=== PATIENT | male | born 1975 | race Two or more races ===

== ENCOUNTER 2017-04-23 16:31 | Inpatient (IN) | payer MEDICAID ==
[~2017-04-23] VITALS: Ht 175.3 cm; Wt 172.0 kg
[~2017-04-23 16:31] MED LIST: FERRCAP PO; HYDR-4663 PO; IBUP800T24 PO; TRAM-297 PO
[2017-04-23 17:25] LABS: DEFINITIVE VIEW TRANSMISSION; Eosinophils # (auto) 0 uL; Mean Corpuscular Hemoglobin 16.9 pg (28.0-32.0)
[2017-04-23 17:33] LABS: Basophils # (auto) 0.1 uL; Basophils % (auto) 1.2 % (0.0-2.0); Eosinophils % (auto) 0.5 % (0.0-7.0); Hematocrit 18.9 % (41.0-53.0); Lymphocytes # (auto) 0.9 uL; Lymphocytes % (auto) 15.8 % (10.0-50.0); Mean Corpuscular Hgb Conc. 29.9 g/dL (32.0-36.0); Mean Corpuscular Volume 56.5 fL (80.0-100.0); Mean Platelet Volume 7.6 fL (7.4-10.4); Monocytes # (auto) 0.4 uL; Neutrophils # (auto) 4.4 uL; Neutrophils % (auto) 75.5 % (37.0-80.0); Platelet Count (auto) 437 10^3/uL (140-450); White Blood Cell 5.9 10^3/uL (4.4-10.8)
[2017-04-23] MEDS ORDERED: SODIUM CHLORIDE 0.9% 1,000 ML IVB ONE (17:40)
[2017-04-23 17:42] LABS: BUN/Creatinine Ratio 11.9; Potassium 3.6 mmol/L (3.5-5.1)
[2017-04-23 17:43] LABS: Albumin 3.6 g/dL (3.4-5.0); Bilirubin, Total 0.9 mg/dL (0.2-1.0); Calcium 8.7 mg/dL (8.5-10.1); Magnesium 2.7 mg/dL (1.6-2.6); Total Protein 7.7 g/dL (6.4-8.2)
[2017-04-23 18:01] LABS: Red Cell Distribution Width 20.2 % (11.6-16.0)
[2017-04-23 18:02] LABS: Hemoglobin 5.7 g/dL (13.5-17.5)
[2017-04-23 18:56] LABS: Hypochromia Marked; Microcytosis Marked; Ovalocytes MODERATE; Platelet Estimate Adequate
[2017-04-23 18:57] LABS: Poikilocytosis Moderate
[2017-04-23] MEDS ORDERED: ONDANSETRON HCL 4 MG/2 ML VIAL IV ONE ×2 (19:00→22:15)
[2017-04-23] MEDS ORDERED: HYDROmorphone HCL 2 MG/ML VL IV ONE ×2 (19:00→22:15)
[2017-04-23 20:36] VITALS: BP 107/79
[2017-04-23] MEDS ORDERED: PANTOPRAZOLE SODIUM 40 MG/10 ML VIAL IV ONE (20:45)
[2017-04-23 20:51] VITALS: BP 114/57
[2017-04-23 21:51] VITALS: BP 113/54
[2017-04-23 22:40] VITALS: BP 115/62
[2017-04-23 23:08] VITALS: BP 121/51
[2017-04-23 23:23] VITALS: BP 126/79
[2017-04-23] MEDS ORDERED: ONDANSETRON HCL 4 MG/2 ML VIAL IV PRN (23:30)
[2017-04-23] MEDS ORDERED: MORPHINE SULF INJ 2 MG/ML SYRINGE 1ML IV PRN (23:30)
[2017-04-23] MEDS ORDERED: NALBUPHINE HCL 10 MG/1ml INJECTION IV PRN (23:30)
[2017-04-23] MEDS ORDERED: HYDROcodone-ACET 5/325MG TAB PO PRN (23:30)
[2017-04-23] MEDS ORDERED: ACETAMINOPHEN 325 MG TAB PO PRN (23:30)
[2017-04-23] MEDS ORDERED: NITROGLYCERIN 0.4 MG SL TAB SL PRN (23:30)
[2017-04-23] MEDS: SODIUM CHLORIDE 0.9% 1,000 ML IV SCH (23:53)
[2017-04-24] VITALS (15 sets, daily range): BP systolic 101–143; BP diastolic 50–84
[2017-04-24] MEDS ORDERED: KETOROLAC TROMETH 30 MG/ML 1ML VIAL IV PRN (02:45)
[2017-04-24] MEDS ORDERED: HYDROmorphone HCL 2 MG/ML VL IV ONE (04:45)
[2017-04-24] MEDS ORDERED: TEMA30CA PO (05:42)
[2017-04-24] MEDS ORDERED: FLUO10TA18 PO (05:42)
[2017-04-24] MEDS ORDERED: GABA-497 PO (05:42)
[2017-04-24] MEDS ORDERED: FLUO20CA90 PO (05:42)
[2017-04-24] MEDS ORDERED: HYDR-4069 PO (05:42)
[2017-04-24] MEDS ORDERED: LORA-154 PO (05:42)
[2017-04-24 05:44] LABS: Basophils # (auto) 0.1 uL; DEFINITIVE VIEW TRANSMISSION; Eosinophils # (auto) 0.1 uL; Eosinophils % (auto) 2.1 % (0.0-7.0); Hemoglobin 7.5 g/dL (13.5-17.5); Lymphocytes # (auto) 1.1 uL; Lymphocytes % (auto) 21.6 % (10.0-50.0); Mean Corpuscular Hemoglobin 19.9 pg (28.0-32.0); Mean Corpuscular Hgb Conc. 31.4 g/dL (32.0-36.0); Mean Corpuscular Volume 63.5 fL (80.0-100.0); Mean Platelet Volume 7.6 fL (7.4-10.4); Monocytes # (auto) 0.5 uL; Monocytes % (auto) 10.4 % (0.0-12.0); Neutrophils # (auto) 3.4 uL; Neutrophils % (auto) 64.9 % (37.0-80.0); Platelet Count (auto) 380 10^3/uL (140-450); SUSPECT VIEW TRANSMISSION; White Blood Cell 5.3 10^3/uL (4.4-10.8)
[2017-04-24 05:59] LABS: INR 1.04 (0.9-1.15); Partial Thromboplastin Time 26.7 sec (22.64-33.71); Prothrombin Time 11.3 sec (9.37-12.3)
[2017-04-24 06:20] LABS: Albumin 3.2 g/dL (3.4-5.0); BUN/Creatinine Ratio 12.9; Potassium 3.7 mmol/L (3.5-5.1); Total Protein 6.8 g/dL (6.4-8.2)
[2017-04-24 06:23] LABS: Red Cell Distribution Width 29.2 % (11.6-16.0)
[2017-04-24 08:26] LABS: Anisocytosis Marked; Hypochromia Marked; Microcytosis Marked; Platelet Estimate Adequate
[2017-04-24 08:27] LABS: Ovalocytes MODERATE
[2017-04-24 08:28] LABS: Tear Drop Cells FEW
[2017-04-24 08:29] LABS: Stomatocytes Few
[2017-04-24] MEDS ORDERED: GASTROGRAFIN 120 ML SOL ONE (08:38)
[2017-04-24] MEDS: PANTOPRAZOLE SODIUM 40 MG/10 ML VIAL IV SCH ×2 (10:00→23:13)
[2017-04-24] MEDS: SODIUM CHLORIDE 0.9% 1,000 ML IV SCH (10:27)
[2017-04-24 12:04] LABS: Urine RBC None Seen /hpf (0 - 3)
[2017-04-24 12:16] LABS: Hemoglobin 9.3 g/dL (13.5-17.5)
[2017-04-24] MEDS: HYDROmorphone HCL 2 MG/ML VL IV PRN ×3 (12:32→23:18)
[2017-04-24 13:04] LABS: Urine Bilirubin Negative (Negative); Urine Blood Negative /uL (Negative); Urine Color Yellow (Yellow); Urine Glucose Normal (Normal); Urine Ketone Negative (Negative); Urine Mucus FEW (None Seen); Urine Nitrite Negative (Negative); Urine Squamous Epithelial Cell FEW /hpf (<5); Urine Urobilinogen Normal (Negative); Urine pH 5.5 (5.0-8.0)
[2017-04-24 19:51] LABS: Hematocrit 25.2 % (41.0-53.0); Hemoglobin 7.7 g/dL (13.5-17.5)
[2017-04-24] MEDS ORDERED: SODIUM CHLORIDE 0.9% 1,000 ML IV SCH (23:20)
[2017-04-25 05:00] VITALS: BP 135/48
[2017-04-25] MEDS: HYDROmorphone HCL 2 MG/ML VL IV PRN ×4 (06:49→20:44)
[2017-04-25 07:07] LABS: Hematocrit 25.1 % (41.0-53.0); Hemoglobin 7.7 g/dL (13.5-17.5)
[2017-04-25] MEDS ORDERED: SODIUM CHLORIDE LOCK 10 ML ONE (08:39)
[2017-04-25] MEDS ORDERED: diphenhdrAMINE HCL 50 MG/1 ML VL ONE (08:39)
[2017-04-25] MEDS ORDERED: LIDOCAINE VISCOUS 2% 15ML UD ONE (08:39)
[2017-04-25 09:00] VITALS: BP 134/70
[2017-04-25] MEDS: fentaNYL CITRATE 100 MCG/2 ML VL ONE ×2 (10:15→10:18)
[2017-04-25] MEDS: MIDAZOLAM HCL 5 MG/ML-1ML VIAL ONE ×2 (10:15→10:18)
[2017-04-25] MEDS: PANTOPRAZOLE SODIUM 40 MG/10 ML VIAL IV SCH ×2 (12:23→22:09)
[2017-04-25 13:00] VITALS: BP 150/87
[2017-04-25 17:08] VITALS: BP 126/66
[2017-04-25 22:00] VITALS: BP 137/75
[2017-04-26] MEDS: HYDROmorphone HCL 2 MG/ML VL IV PRN ×2 (02:00→08:56)
[2017-04-26 05:43] VITALS: BP 103/55
[2017-04-26 05:52] LABS: Hemoglobin 7.9 g/dL (13.5-17.5)
[2017-04-26] MEDS: PANTOPRAZOLE SODIUM 40 MG/10 ML VIAL IV SCH (08:56)
[2017-04-26 10:15] VITALS: BP 121/70
== END 2017-04-26 12:30 | disposition home or self-care (01) | DRG 254 ==
LOC: ER 16:31 → EDBD 16:31 → TELE 16:32 → TELE-EAST 16:32
PROVIDERS: ADMIT Internal Medicine; ATTEND Internal Medicine
PROC: 30233N1 Transfusion of Nonautologous Red Blood Cells into Peripheral Vein, Percutaneous Approach (ICD-10-PCS; 2017-04-23)
PROC: 0DJ08ZZ Inspection of Upper Intestinal Tract, Via Natural or Artificial Opening Endoscopic (ICD-10-PCS; principal; 2017-04-25 10:12)
DX: K90.9 Intestinal malabsorption, unspecified (principal); E66.01 Morbid (severe) obesity due to excess calories; I10 Essential (primary) hypertension; N20.0 Calculus of kidney; D64.9 Anemia, unspecified; K46.9 Unspecified abdominal hernia without obstruction or gangrene; K43.9 Ventral hernia without obstruction or gangrene; Z98.84 Bariatric surgery status; F41.8 Other specified anxiety disorders; F17.210 Nicotine dependence, cigarettes, uncomplicated; Z83.3 Family history of diabetes mellitus; F32.9 Major depressive disorder, single episode, unspecified; F41.9 Anxiety disorder, unspecified; Z88.5 Allergy status to narcotic agent; Z71.89 Other specified counseling; Z82.3 Family history of stroke
CPT/HCPCS: 36415; 36430; 43235; 71010; 74177; 74250; 80053; 81001; 83605; 83690; 83735; 85014; 85018; 85025; 85610; 85730; 86850; 86900; 86901; 86920; 87040; 87081; 93005; 96361; 96374; 96375; 96376; 99291; C9113; J1885; J2250; J2405

== ENCOUNTER 2017-05-28 13:50 | Emergency (ER) | payer MEDICAID ==
[~2017-05-28] VITALS: Ht 175.3 cm; Wt 169.2 kg
[~2017-05-28 13:50] MED LIST changes: -FERRCAP PO; +FLUO10TA18 PO; +FLUO20CA90 PO; +GABA-497 PO; +HYDR-4069 PO; -HYDR-4663 PO; -IBUP800T24 PO; +LORA-154 PO; +TEMA30CA PO; -TRAM-297 PO
[2017-05-28 15:43] LABS: Basophils # (auto) 0 uL; Basophils % (auto) 0.6 % (0.0-2.0); CONDITION Y; DEFINITIVE SEE PRINTOUT; Eosinophils # (auto) 0.2 uL; Eosinophils % (auto) 2.4 % (0.0-7.0); Hematocrit 31.5 % (41.0-53.0); Hemoglobin 9.8 g/dL (13.5-17.5); Lymphocytes # (auto) 1.3 uL; Lymphocytes % (auto) 16.3 % (10.0-50.0); Mean Corpuscular Hemoglobin 19.9 pg (28.0-32.0); Mean Corpuscular Hgb Conc. 30.9 g/dL (32.0-36.0); Mean Corpuscular Volume 64.3 fL (80.0-100.0); Mean Platelet Volume 7.5 fL (7.4-10.4); Monocytes # (auto) 0.6 uL; Monocytes % (auto) 7.3 % (0.0-12.0); Neutrophils # (auto) 5.9 uL; Neutrophils % (auto) 73.4 % (37.0-80.0); Platelet Count (auto) 512 10^3/uL (140-450); SUSPECT SEE PRINTOUT
[2017-05-28 15:49] LABS: Calcium 8.7 mg/dL (8.5-10.1); Potassium 4.1 mmol/L (3.5-5.1)
[2017-05-28 15:55] LABS: BUN/Creatinine Ratio 21.2; Bilirubin, Total 0.7 mg/dL (0.2-1.0); Total Protein 7.9 g/dL (6.4-8.2)
[2017-05-28 16:22] LABS: Platelet Estimate Increased
[2017-05-28 16:23] LABS: Anisocytosis Marked; Hypochromia Marked
[2017-05-28 16:24] LABS: Microcytosis Marked; Ovalocytes MODERATE
[2017-05-28 16:53] VITALS: BP 140/99
[2017-05-28] MEDS ORDERED: HYDROmorphone HCL 2 MG/ML VL IM ONE (17:15)
[2017-05-28] MEDS ORDERED: ONDANSETRON HCL 4 MG/2 ML VIAL IM ONE (17:15)
[2017-05-28 17:50] LABS: Urine Bilirubin Negative (Negative); Urine Blood Negative /uL (Negative); Urine Color Yellow (Yellow); Urine Glucose Normal (Normal); Urine Mucus FEW (None Seen); Urine Nitrite Negative (Negative); Urine RBC <1 /hpf (0 - 3); Urine Squamous Epithelial Cell FEW /hpf (<5); Urine Urobilinogen Normal (Negative); Urine pH 5.5 (5.0-8.0)
[2017-05-28 17:51] LABS: Urine Ketone 1+ (Negative)
== END 2017-05-28 20:30 | disposition home or self-care (01) ==
LOC: ER 13:53
DX: R10.84 Generalized abdominal pain (principal); D64.9 Anemia, unspecified; F17.210 Nicotine dependence, cigarettes, uncomplicated; Z98.84 Bariatric surgery status; Z98.890 Other specified postprocedural states; Z88.5 Allergy status to narcotic agent
CPT/HCPCS: 36415; 74176; 80053; 81001; 82150; 83690; 85025; 96372; 99285; J1170; J2405

== ENCOUNTER 2017-06-23 07:38 | Emergency (ER) | payer MEDICAID ==
[~2017-06-23] VITALS: Ht 175.3 cm; Wt 170.1 kg
[2017-06-23 08:09] LABS: Urine Bilirubin Negative (Negative); Urine Blood Negative /uL (Negative); Urine Color Yellow (Yellow); Urine Glucose Normal (Normal); Urine Ketone Negative (Negative); Urine Mucus FEW (None Seen); Urine Nitrite Negative (Negative); Urine RBC 1 /hpf (0 - 3); Urine Squamous Epithelial Cell FEW /hpf (<5); Urine pH 7.5 (5.0-8.0)
[2017-06-23 08:09] LABS: Basophils # (auto) 0 uL; Basophils % (auto) 0.6 % (0.0-2.0); CONDITION Y; DEFINITIVE SEE PRINTOUT; Eosinophils # (auto) 0.2 uL; Eosinophils % (auto) 3.7 % (0.0-7.0); Hematocrit 31.8 % (41.0-53.0); Hemoglobin 9.8 g/dL (13.5-17.5); Lymphocytes % (auto) 19.7 % (10.0-50.0); Mean Corpuscular Hgb Conc. 30.9 g/dL (32.0-36.0); Mean Corpuscular Volume 67.9 fL (80.0-100.0); Mean Platelet Volume 6.9 fL (7.4-10.4); Monocytes # (auto) 0.7 uL; Monocytes % (auto) 13.4 % (0.0-12.0); Neutrophils # (auto) 3.1 uL; Neutrophils % (auto) 62.6 % (37.0-80.0); Platelet Count (auto) 485 10^3/uL (140-450); SUSPECT SEE PRINTOUT; White Blood Cell 4.9 10^3/uL (4.4-10.8)
[2017-06-23 08:10] LABS: Red Cell Distribution Width 26.2 % (11.6-16.0)
[2017-06-23] MEDS ORDERED: SODIUM CHLORIDE 0.9% 1,000 ML IVB ONE (08:12)
[2017-06-23] MEDS ORDERED: KETOROLAC TROMETH 30 MG/ML 1ML VIAL IV ONE (08:15)
[2017-06-23] MEDS ORDERED: PROMETHAZINE HCL 25 MG/ML 1ML IV PRN (08:15)
[2017-06-23 08:47] LABS: Albumin 3.5 g/dL (3.4-5.0); Calcium 8.1 mg/dL (8.5-10.1); Magnesium 2.4 mg/dL (1.6-2.6); Potassium 4.1 mmol/L (3.5-5.1)
[2017-06-23 08:49] LABS: BUN/Creatinine Ratio 16.7
[2017-06-23 09:03] LABS: Bilirubin, Total 0.4 mg/dL (0.2-1.0); Total Protein 7.4 g/dL (6.4-8.2)
[2017-06-23 10:12] LABS: Anisocytosis Slight; Hypochromia Slight; Microcytosis Slight; Ovalocytes FEW; Platelet Estimate Increased
[2017-06-23] MEDS ORDERED: NALBUPHINE HCL 10 MG/1ml INJECTION IV ONE (10:15)
[2017-06-23 12:25] VITALS: BP 120/67
== END 2017-06-23 12:34 | disposition home or self-care (01) ==
LOC: ER 07:38
DX: R10.11 Right upper quadrant pain (principal); E66.01 Morbid (severe) obesity due to excess calories; F17.210 Nicotine dependence, cigarettes, uncomplicated; Z68.43 Body mass index [BMI] 50.0-59.9, adult; Z88.6 Allergy status to analgesic agent; Z79.899 Other long term (current) drug therapy
CPT/HCPCS: 36415; 71020; 76705; 80053; 81001; 82150; 83690; 83735; 84443; 85025; 96361; 96374; 96375; 99285; J1885; J2300; J2550; J7030

== ENCOUNTER 2017-09-12 17:20 | Inpatient (IN) | payer MEDICAID ==
[~2017-09-12] VITALS: Ht 177.8 cm; Wt 167.5 kg
[2017-09-12] MEDS ORDERED: SODIUM CHLORIDE 0.9% 1,000 ML IV ONE ×2 (18:14→19:00)
[2017-09-12] MEDS ORDERED: SODIUM CHLORIDE 0.9% 1,000 ML IVB ONE (18:14)
[2017-09-12 18:32] LABS: Basophils # (auto) 0 uL; Eosinophils # (auto) 0 uL; Lymphocytes # (auto) 1.5 uL; Mean Corpuscular Hemoglobin 22.9 pg (28.0-32.0); Mean Corpuscular Hgb Conc. 31.3 g/dL (32.0-36.0); Monocytes # (auto) 0.1 uL; Monocytes % (auto) 2.7 % (0.0-12.0); Neutrophils # (auto) 1.7 uL; Nucleated Red Blood Cells % 0.1 %; White Blood Cell 3.4 10^3/uL (4.4-10.8)
[2017-09-12 18:34] LABS: Basophils % (auto) 1.1 % (0.0-2.0); Eosinophils % (auto) 0.6 % (0.0-7.0); Hematocrit 27.2 % (41.0-53.0); Hemoglobin 8.5 g/dL (13.5-17.5); Lymphocytes % (auto) 44.9 % (10.0-50.0); Mean Corpuscular Volume 73.1 fL (80.0-100.0); Neutrophils % (auto) 50.7 % (37.0-80.0); Platelet Count (auto) 23 10^3/uL (140-450)
[2017-09-12 18:40] LABS: Albumin 3.2 g/dL (3.4-5.0); Alkaline Phosphatase 67 U/L (45-117); Anion Gap 8 (5-15); Aspartate Aminotransferase 20 U/L (15-37); BUN/Creatinine Ratio 46.1; Bilirubin, Total 0.4 mg/dL (0.2-1.0); Blood Urea Nitrogen 35 mg/dL (7-18); Calcium 7.9 mg/dL (8.5-10.1); Carbon Dioxide 23 mmol/L (21-32); Chloride 104 mmol/L (98-107); GFR African American 147 mL/min; GFR Non-African American 121 mL/min; Glucose 102 mg/dL (74-106); Magnesium 2.5 mg/dL (1.6-2.6); Potassium 5.1 mmol/L (3.5-5.1); Sodium 135 mmol/L (136-145); Total Protein 6.8 g/dL (6.4-8.2)
[2017-09-12] MEDS ORDERED: NOREPINEPHRINE 8 MG/250ML KIT 250 ML IV SCH (18:49)
[2017-09-12 18:52] LABS: Red Cell Distribution Width 26.5 % (11.8-14.3)
[2017-09-12 19:11] LABS: INR 1.05 (0.9-1.15); Partial Thromboplastin Time 21.3 sec (22.64-33.71); Prothrombin Time 11.4 sec (9.37-12.3)
[2017-09-12] MEDS ORDERED: ENOXAPARIN SOD 150 MG/1 ML SYRINGE SC ONE (19:30)
[2017-09-12 19:38] LABS: Urine RBC None Seen /hpf (0 - 3)
[2017-09-12 20:04] LABS: Anisocytosis Moderate; Hypochromia Moderate; Microcytosis Moderate; Platelet Estimate Markedly Decreased
[2017-09-12 20:05] LABS: Ovalocytes FEW
[2017-09-12 20:12] LABS: Urine Bilirubin Negative (Negative); Urine Blood Negative /uL (Negative); Urine Color Yellow (Yellow); Urine Glucose Normal (Normal); Urine Ketone 1+ (Negative); Urine Nitrite Negative (Negative); Urine Squamous Epithelial Cell FEW /hpf (<5); Urine Urobilinogen Normal (Negative)
[2017-09-12] MEDS ORDERED: KETOROLAC TROMETH 30 MG/ML 1ML VIAL IV ONE (20:30)
[2017-09-12] MEDS ORDERED: IOHEXOL 350 MG/ML 100ML IJ ONE (22:58)
[2017-09-13] VITALS (12 sets, daily range): BP systolic 102–133; BP diastolic 45–71
[2017-09-13] MEDS: SODIUM CHLORIDE 0.9% 1,000 ML IV SCH ×2 (00:42→13:28)
[2017-09-13] MEDS ORDERED: TEMAZEPAM 15 MG CAP PO PRN (00:45)
[2017-09-13] MEDS ORDERED: ACETAMINOPHEN 325 MG TAB PO PRN (00:45)
[2017-09-13] MEDS: HYDROcodone-ACET 5/325MG TAB PO PRN ×4 (03:11→13:28)
[2017-09-13] MEDS: TEMAZEPAM 15 MG CAP PO PRN (03:17)
[2017-09-13 06:37] LABS: Amylase 21 U/L (25-115)
[2017-09-13] MEDS ORDERED: GABA-497 PO (06:54)
[2017-09-13] MEDS ORDERED: TEMA30CA PO (06:54)
[2017-09-13] MEDS ORDERED: FLUO20CA19 PO (06:54)
[2017-09-13] MEDS ORDERED: HYDR-4683 PO (06:54)
[2017-09-13] MEDS ORDERED: FER325T PO (06:54)
[2017-09-13] MEDS: FLUoxetine HCL 20 MG CAP PO SCH (09:18)
[2017-09-13] MEDS ORDERED: PANTOPRAZOLE 40 MG/10 ML VIAL IV SCH (10:00)
[2017-09-13] MEDS: SUCRALFATE 1 GM/10 ML ORAL SUSP PO SCH ×2 (17:00→23:13)
[2017-09-13 17:27] LABS: Basophils # (auto) 0 uL; Eosinophils # (auto) 0.1 uL; Eosinophils % (auto) 0.8 % (0.0-7.0); Hematocrit 21.6 % (41.0-53.0); Mean Corpuscular Hgb Conc. 30.3 g/dL (32.0-36.0); Monocytes # (auto) 0.4 uL
[2017-09-13 17:28] LABS: Basophils % (auto) 0.5 % (0.0-2.0); Lymphocytes # (auto) 0.8 uL; Mean Corpuscular Hemoglobin 22.3 pg (28.0-32.0); Mean Corpuscular Volume 73.7 fL (80.0-100.0); Mean Platelet Volume 7.4 fL (6.9-10.8); Neutrophils # (auto) 5.7 uL; Neutrophils % (auto) 80.7 % (37.0-80.0); Platelet Count (auto) 267 10^3/uL (140-450); White Blood Cell 7.1 10^3/uL (4.4-10.8)
[2017-09-13 17:42] LABS: BUN/Creatinine Ratio 31.5; Calcium 7.9 mg/dL (8.5-10.1); Potassium 3.6 mmol/L (3.5-5.1)
[2017-09-13 17:44] LABS: Red Cell Distribution Width 25.8 % (11.8-14.3)
[2017-09-13 17:47] LABS: Hemoglobin 6.5 g/dL (13.5-17.5)
[2017-09-13] MEDS: HYDROmorphone HCL 2 MG/ML VL IV PRN (18:09)
[2017-09-13 18:53] LABS: Platelet Estimate Adequate
[2017-09-13 18:54] LABS: Ovalocytes FEW; Tear Drop Cells FEW
[2017-09-13 18:56] LABS: Polychromasia Slight
[2017-09-13 18:57] LABS: Anisocytosis Moderate; Hypochromia Moderate; Microcytosis Moderate
[2017-09-13] MEDS: PANTOPRAZOLE 40 MG/10 ML VIAL IV SCH (22:00)
[2017-09-14] VITALS (16 sets, daily range): BP systolic 98–148; BP diastolic 36–80
[2017-09-14] MEDS: TEMAZEPAM 15 MG CAP PO PRN ×2 (02:34→23:57)
[2017-09-14] MEDS: SODIUM CHLORIDE 0.9% 1,000 ML IV SCH ×2 (02:36→14:26)
[2017-09-14] MEDS: HYDROmorphone HCL 2 MG/ML VL IV PRN ×5 (05:51→23:58)
[2017-09-14] MEDS: ONDANSETRON HCL 4 MG/2 ML VIAL IV PRN ×4 (05:52→18:17)
[2017-09-14] MEDS: SUCRALFATE 1 GM/10 ML ORAL SUSP PO SCH ×4 (07:05→23:11)
[2017-09-14 07:12] LABS: Eosinophils # (auto) 0.1 uL; Monocytes # (auto) 0.5 uL; Nucleated Red Blood Cells % 0.1 %; Platelet Count (auto) 248 10^3/uL (140-450)
[2017-09-14 07:14] LABS: Basophils # (auto) 0 uL; Basophils % (auto) 0.9 % (0.0-2.0); Eosinophils % (auto) 2.1 % (0.0-7.0); Hematocrit 22.1 % (41.0-53.0); Lymphocytes # (auto) 1.1 uL; Lymphocytes % (auto) 21.4 % (10.0-50.0); Mean Corpuscular Hemoglobin 23.5 pg (28.0-32.0); Mean Corpuscular Hgb Conc. 31.1 g/dL (32.0-36.0); Mean Corpuscular Volume 75.7 fL (80.0-100.0); Monocytes % (auto) 8.8 % (0.0-12.0); Neutrophils # (auto) 3.5 uL; Neutrophils % (auto) 66.8 % (37.0-80.0); White Blood Cell 5.3 10^3/uL (4.4-10.8)
[2017-09-14 07:17] LABS: Red Cell Distribution Width 25.6 % (11.8-14.3)
[2017-09-14 07:19] LABS: Hemoglobin 6.9 g/dL (13.5-17.5)
[2017-09-14 07:30] LABS: Albumin 2.8 g/dL (3.4-5.0); Bilirubin, Total 0.5 mg/dL (0.2-1.0); Calcium 7.8 mg/dL (8.5-10.1); Magnesium 2.2 mg/dL (1.6-2.6); Potassium 3.6 mmol/L (3.5-5.1); Total Protein 5.9 g/dL (6.4-8.2)
[2017-09-14 10:10] LABS: Anisocytosis Slight; Hypochromia Slight; Microcytosis Slight; Platelet Estimate Adequate
[2017-09-14] MEDS: FERROUS SULFATE 325 MG TAB PO SCH ×2 (10:36→18:16)
[2017-09-14] MEDS: FLUoxetine HCL 20 MG CAP PO SCH (10:36)
[2017-09-14] MEDS: PANTOPRAZOLE 40 MG/10 ML VIAL IV SCH ×2 (10:36→23:11)
[2017-09-14 12:14] LABS: Hematocrit 25.1 % (41.0-53.0)
[2017-09-14] MEDS: HYDROcodone-ACET 10/325MG TAB PO PRN (23:12)
[2017-09-15] MEDS: SODIUM CHLORIDE 0.9% 1,000 ML IV SCH ×2 (02:33→12:23)
[2017-09-15 05:00] VITALS: BP 126/70
[2017-09-15] MEDS: SUCRALFATE 1 GM/10 ML ORAL SUSP PO SCH ×4 (07:00→21:24)
[2017-09-15] MEDS: HYDROmorphone HCL 2 MG/ML VL IV PRN ×3 (07:37→21:25)
[2017-09-15] MEDS: FERROUS SULFATE 325 MG TAB PO SCH ×3 (07:54→17:40)
[2017-09-15 09:00] VITALS: BP 143/73
[2017-09-15] MEDS: PANTOPRAZOLE 40 MG/10 ML VIAL IV SCH ×2 (09:59→21:24)
[2017-09-15] MEDS: ONDANSETRON HCL 4 MG/2 ML VIAL IV PRN (09:59)
[2017-09-15] MEDS: FLUoxetine HCL 20 MG CAP PO SCH (10:00)
[2017-09-15] MEDS: HYDROcodone-ACET 10/325MG TAB PO PRN ×2 (10:00→16:02)
[2017-09-15] MEDS: DOXYCYCLINE 100 MG TAB/CAP PO SCH (12:14)
[2017-09-15 13:00] VITALS: BP 133/49
[2017-09-15 13:25] LABS: Basophils # (auto) 0.1 uL; Basophils % (auto) 0.9 % (0.0-2.0); Eosinophils # (auto) 0.1 uL; Hematocrit 29.8 % (41.0-53.0); Hemoglobin 9.2 g/dL (13.5-17.5); Lymphocytes # (auto) 1.2 uL; Lymphocytes % (auto) 14.8 % (10.0-50.0); Mean Corpuscular Hemoglobin 23.5 pg (28.0-32.0); Mean Corpuscular Hgb Conc. 30.7 g/dL (32.0-36.0); Mean Corpuscular Volume 76.6 fL (80.0-100.0); Mean Platelet Volume 7.1 fL (6.9-10.8); Monocytes # (auto) 0.5 uL; Monocytes % (auto) 6.5 % (0.0-12.0); Neutrophils # (auto) 6.1 uL; Neutrophils % (auto) 76.8 % (37.0-80.0); Nucleated Red Blood Cells % 0.1 %; Platelet Count (auto) 361 10^3/uL (140-450); Red Cell Distribution Width 24.6 % (11.8-14.3); White Blood Cell 7.9 10^3/uL (4.4-10.8)
[2017-09-15 13:45] LABS: Albumin 3.5 g/dL (3.4-5.0); BUN/Creatinine Ratio 5.9; Bilirubin, Total 0.4 mg/dL (0.2-1.0); Calcium 8.4 mg/dL (8.5-10.1); Potassium 3.6 mmol/L (3.5-5.1); Total Protein 7.3 g/dL (6.4-8.2)
[2017-09-15 14:06] LABS: Anisocytosis Slight; Hypochromia Slight; Microcytosis Slight; Ovalocytes FEW; Platelet Estimate Adequate
[2017-09-15 16:38] VITALS: BP 140/56
[2017-09-15] MEDS: TEMAZEPAM 15 MG CAP PO PRN (21:25)
[2017-09-15 21:51] VITALS: BP 120/67
[2017-09-16] VITALS (7 sets, daily range): BP systolic 113–154; BP diastolic 62–87
[2017-09-16] MEDS: DOXYCYCLINE 100 MG TAB/CAP PO SCH ×2 (00:31→12:14)
[2017-09-16] MEDS: HYDROmorphone HCL 2 MG/ML VL IV PRN ×3 (03:49→18:38)
[2017-09-16] MEDS: SODIUM CHLORIDE 0.9% 1,000 ML IV SCH ×3 (03:58→21:11)
[2017-09-16 05:45] LABS: Basophils # (auto) 0 uL; Basophils % (auto) 1.1 % (0.0-2.0); Eosinophils # (auto) 0.1 uL; Eosinophils % (auto) 2.5 % (0.0-7.0); Hemoglobin 7.7 g/dL (13.5-17.5); Lymphocytes # (auto) 0.7 uL; Monocytes # (auto) 0.4 uL; Neutrophils # (auto) 2.3 uL
[2017-09-16 05:50] LABS: Hematocrit 24.1 % (41.0-53.0); Lymphocytes % (auto) 20.7 % (10.0-50.0); Mean Corpuscular Hemoglobin 24.4 pg (28.0-32.0); Mean Corpuscular Volume 76.5 fL (80.0-100.0); Mean Platelet Volume 7.2 fL (6.9-10.8); Monocytes % (auto) 11.8 % (0.0-12.0); Neutrophils % (auto) 63.9 % (37.0-80.0); Nucleated Red Blood Cells % 0.2 %; Platelet Count (auto) 276 10^3/uL (140-450); White Blood Cell 3.6 10^3/uL (4.4-10.8)
[2017-09-16 06:13] LABS: Albumin 2.8 g/dL (3.4-5.0); BUN/Creatinine Ratio 5.7; Bilirubin, Total 0.4 mg/dL (0.2-1.0); Potassium 3.1 mmol/L (3.5-5.1)
[2017-09-16] MEDS: SUCRALFATE 1 GM/10 ML ORAL SUSP PO SCH ×4 (06:13→21:10)
[2017-09-16] MEDS: FERROUS SULFATE 325 MG TAB PO SCH ×3 (08:00→18:37)
[2017-09-16] MEDS ORDERED: SODIUM CHLORIDE LOCK 10 ML ONE (08:12)
[2017-09-16] MEDS ORDERED: LIDOCAINE VISCOUS 2% 15ML UD ONE (08:12)
[2017-09-16] MEDS ORDERED: diphenhdrAMINE HCL 50 MG/1 ML VL ONE (08:12)
[2017-09-16 10:16] LABS: Platelet Estimate Adequate
[2017-09-16 10:19] LABS: Anisocytosis Moderate; Hypochromia Slight; Microcytosis Slight; Ovalocytes FEW; Schistocytes FEW; Stomatocytes Few; Tear Drop Cells FEW
[2017-09-16] MEDS: fentaNYL CITRATE 100 MCG/2 ML VL ONE ×3 (10:56→11:03)
[2017-09-16] MEDS: MIDAZOLAM HCL 5 MG/ML-1ML VIAL ONE ×3 (10:56→11:03)
[2017-09-16] MEDS ORDERED: GOLYTELY 4L KIT PO ONE (11:15)
[2017-09-16] MEDS: PANTOPRAZOLE 40 MG/10 ML VIAL IV SCH ×2 (12:13→21:10)
[2017-09-16] MEDS: FLUoxetine HCL 20 MG CAP PO SCH (12:14)
[2017-09-16] MEDS: ONDANSETRON HCL 4 MG/2 ML VIAL IV PRN ×2 (12:14→18:38)
[2017-09-16] MEDS ORDERED: POTASSIUM CHLORIDE 20 MEQ, LIDOCAINE 1% (LOCAL ANESTH.) 2 ML in SODIUM CHL 0.9% 100 ML IV ONE (12:45)
[2017-09-16] MEDS ORDERED: POTASSIUM CHL 20 Meq TABLET PO ONE (12:45)
[2017-09-16] MEDS: HYDROcodone-ACET 10/325MG TAB PO PRN ×2 (15:05→21:11)
[2017-09-17] MEDS: DOXYCYCLINE 100 MG TAB/CAP PO SCH ×2 (00:11→13:45)
[2017-09-17] MEDS: HYDROmorphone HCL 2 MG/ML VL IV PRN ×5 (00:12→22:07)
[2017-09-17 00:55] VITALS: BP 146/85
[2017-09-17 05:12] VITALS: BP 138/70
[2017-09-17] MEDS ORDERED: GOLYTELY 4L KIT PO ONE (06:00)
[2017-09-17 06:05] LABS: Eosinophils # (auto) 0.1 uL; Lymphocytes # (auto) 1.2 uL
[2017-09-17 06:12] LABS: Basophils # (auto) 0 uL; Basophils % (auto) 0.7 % (0.0-2.0); Eosinophils % (auto) 2.4 % (0.0-7.0); Hematocrit 30.5 % (41.0-53.0); Hemoglobin 9.6 g/dL (13.5-17.5); Lymphocytes % (auto) 19.7 % (10.0-50.0); Mean Corpuscular Hemoglobin 24.6 pg (28.0-32.0); Mean Corpuscular Hgb Conc. 31.3 g/dL (32.0-36.0); Mean Corpuscular Volume 78.4 fL (80.0-100.0); Mean Platelet Volume 7.4 fL (6.9-10.8); Monocytes # (auto) 0.7 uL; Monocytes % (auto) 11.1 % (0.0-12.0); Neutrophils # (auto) 3.9 uL; Neutrophils % (auto) 66.1 % (37.0-80.0); Nucleated Red Blood Cells % 0.1 %; Platelet Count (auto) 346 10^3/uL (140-450); White Blood Cell 5.9 10^3/uL (4.4-10.8)
[2017-09-17 06:19] LABS: Calcium 8.4 mg/dL (8.5-10.1); Magnesium 2.1 mg/dL (1.6-2.6); Potassium 3.4 mmol/L (3.5-5.1)
[2017-09-17 06:21] LABS: BUN/Creatinine Ratio 4.9
[2017-09-17 06:23] LABS: Red Cell Distribution Width 24.1 % (11.8-14.3)
[2017-09-17] MEDS: SUCRALFATE 1 GM/10 ML ORAL SUSP PO SCH ×4 (06:34→22:06)
[2017-09-17 06:47] LABS: Platelet Estimate Adequate
[2017-09-17 06:48] LABS: Anisocytosis Moderate; Hypochromia Slight; Microcytosis Slight
[2017-09-17 06:49] LABS: Ovalocytes MODERATE
[2017-09-17 08:23] VITALS: BP 119/64
[2017-09-17] MEDS ORDERED: NALOXONE HCL 0.4 MG/ML VIAL ONE (08:53)
[2017-09-17] MEDS ORDERED: FLUMAZENIL 0.1 MG/ML INJ 10ML MDV IV ONE (08:53)
[2017-09-17] MEDS ORDERED: diphenhdrAMINE HCL 50 MG/1 ML VL ONE (08:54)
[2017-09-17] MEDS ORDERED: SODIUM CHLORIDE LOCK 10 ML ONE (08:54)
[2017-09-17] MEDS: PANTOPRAZOLE 40 MG/10 ML VIAL IV SCH ×2 (08:57→22:06)
[2017-09-17] MEDS: fentaNYL CITRATE 100 MCG/2 ML VL ONE ×2 (11:57→12:00)
[2017-09-17] MEDS: MIDAZOLAM HCL 5 MG/ML-1ML VIAL ONE ×3 (11:57→12:03)
[2017-09-17] MEDS ORDERED: fentaNYL CITRATE 100 MCG/2 ML VL ONE (11:58)
[2017-09-17] MEDS ORDERED: MIDAZOLAM HCL 5 MG/ML-1ML VIAL ONE (11:58)
[2017-09-17] MEDS: FERROUS SULFATE 325 MG TAB PO SCH ×3 (12:00→18:52)
[2017-09-17] MEDS: FLUoxetine HCL 20 MG CAP PO SCH (13:45)
[2017-09-17] MEDS: HYDROcodone-ACET 10/325MG TAB PO PRN (14:18)
[2017-09-17] MEDS: SODIUM CHLORIDE 0.9% 1,000 ML IV SCH (17:03)
[2017-09-17 17:45] VITALS: BP 144/85
[2017-09-17 22:00] VITALS: BP 134/75
[2017-09-17] MEDS: ONDANSETRON HCL 4 MG/2 ML VIAL IV PRN (22:07)
[2017-09-18] MEDS: DOXYCYCLINE 100 MG TAB/CAP PO SCH ×3 (00:07→23:36)
[2017-09-18 05:00] VITALS: BP 129/59
[2017-09-18] MEDS: HYDROmorphone HCL 2 MG/ML VL IV PRN ×4 (05:06→21:51)
[2017-09-18] MEDS: ONDANSETRON HCL 4 MG/2 ML VIAL IV PRN ×3 (05:06→21:51)
[2017-09-18 06:09] LABS: Basophils # (auto) 0 uL; Eosinophils # (auto) 0.1 uL; Hematocrit 26.3 % (41.0-53.0); Lymphocytes # (auto) 0.9 uL; Mean Corpuscular Hemoglobin 24.7 pg (28.0-32.0); Monocytes # (auto) 0.6 uL; Neutrophils # (auto) 3.3 uL; Neutrophils % (auto) 67.7 % (37.0-80.0)
[2017-09-18 06:11] LABS: Basophils % (auto) 0.6 % (0.0-2.0); Eosinophils % (auto) 2.3 % (0.0-7.0); Hemoglobin 8.4 g/dL (13.5-17.5); Lymphocytes % (auto) 17.3 % (10.0-50.0); Mean Corpuscular Hgb Conc. 31.9 g/dL (32.0-36.0); Mean Corpuscular Volume 77.4 fL (80.0-100.0); Mean Platelet Volume 7.1 fL (6.9-10.8); Monocytes % (auto) 12.1 % (0.0-12.0); Nucleated Red Blood Cells % 0.2 %; Platelet Count (auto) 319 10^3/uL (140-450); White Blood Cell 4.9 10^3/uL (4.4-10.8)
[2017-09-18 06:20] LABS: Red Cell Distribution Width 24.6 % (11.8-14.3)
[2017-09-18 06:32] LABS: BUN/Creatinine Ratio 8.3; Calcium 8.2 mg/dL (8.5-10.1); Potassium 3.4 mmol/L (3.5-5.1)
[2017-09-18 06:46] LABS: Ovalocytes MODERATE; Platelet Estimate Adequate
[2017-09-18 06:47] LABS: Anisocytosis Moderate; Hypochromia Slight; Microcytosis Slight
[2017-09-18] MEDS: SUCRALFATE 1 GM/10 ML ORAL SUSP PO SCH ×4 (07:00→21:50)
[2017-09-18] MEDS: FERROUS SULFATE 325 MG TAB PO SCH ×3 (08:41→19:08)
[2017-09-18] MEDS: SODIUM CHLORIDE 0.9% 1,000 ML IV SCH ×2 (08:53→18:03)
[2017-09-18 08:58] VITALS: BP 120/79
[2017-09-18] MEDS: FLUoxetine HCL 20 MG CAP PO SCH (10:35)
[2017-09-18] MEDS: PANTOPRAZOLE 40 MG/10 ML VIAL IV SCH ×2 (10:36→21:50)
[2017-09-18] MEDS: HYDROcodone-ACET 10/325MG TAB PO PRN (11:36)
[2017-09-18 13:00] VITALS: BP 130/64
[2017-09-18 17:00] VITALS: BP 134/77
[2017-09-18 22:15] VITALS: BP 134/61
[2017-09-18] MEDS: TEMAZEPAM 15 MG CAP PO PRN ×2 (23:15)
[2017-09-19] VITALS (7 sets, daily range): BP systolic 120–144; BP diastolic 64–84
[2017-09-19] MEDS: HYDROmorphone HCL 2 MG/ML VL IV PRN ×4 (04:48→22:04)
[2017-09-19] MEDS: ONDANSETRON HCL 4 MG/2 ML VIAL IV PRN (04:48)
[2017-09-19] MEDS: SODIUM CHLORIDE 0.9% 1,000 ML IV SCH ×2 (06:00→19:03)
[2017-09-19] MEDS: SUCRALFATE 1 GM/10 ML ORAL SUSP PO SCH ×4 (06:26→22:04)
[2017-09-19 07:21] LABS: Basophils # (auto) 0 uL; Hematocrit 25.1 % (41.0-53.0); Lymphocytes # (auto) 0.9 uL; Mean Corpuscular Hgb Conc. 31.9 g/dL (32.0-36.0); Monocytes # (auto) 0.7 uL; Nucleated Red Blood Cells % 0.1 %
[2017-09-19 07:22] LABS: BUN/Creatinine Ratio 12.1; Magnesium 2.2 mg/dL (1.6-2.6); Phosphorus 4.8 mg/dL (2.5-4.90); Potassium 3.5 mmol/L (3.5-5.1)
[2017-09-19 07:23] LABS: Basophils % (auto) 0.6 % (0.0-2.0); Eosinophils # (auto) 0.1 uL; Lymphocytes % (auto) 19.4 % (10.0-50.0); Mean Corpuscular Volume 78.4 fL (80.0-100.0); Mean Platelet Volume 7.1 fL (6.9-10.8); Monocytes % (auto) 14.2 % (0.0-12.0); Neutrophils # (auto) 3.1 uL; Neutrophils % (auto) 62.8 % (37.0-80.0); Platelet Count (auto) 333 10^3/uL (140-450); White Blood Cell 4.9 10^3/uL (4.4-10.8)
[2017-09-19 07:58] LABS: Red Cell Distribution Width 24.4 % (11.8-14.3)
[2017-09-19] MEDS: FERROUS SULFATE 325 MG TAB PO SCH ×3 (08:46→16:51)
[2017-09-19] MEDS: FLUoxetine HCL 20 MG CAP PO SCH (08:46)
[2017-09-19] MEDS: PANTOPRAZOLE 40 MG/10 ML VIAL IV SCH ×2 (08:46→22:04)
[2017-09-19] MEDS: DOXYCYCLINE 100 MG TAB/CAP PO SCH (12:02)
[2017-09-19 14:02] LABS: Platelet Estimate Adequate
[2017-09-19 14:03] LABS: Anisocytosis Moderate; Hypochromia Slight; Microcytosis Slight
[2017-09-19 14:04] LABS: Ovalocytes FEW
[2017-09-19 14:06] LABS: Tear Drop Cells FEW
[2017-09-19] MEDS: TEMAZEPAM 15 MG CAP PO PRN (22:04)
[2017-09-20] MEDS: HYDROmorphone HCL 2 MG/ML VL IV PRN ×2 (03:13→09:29)
[2017-09-20 05:00] VITALS: BP 141/78
[2017-09-20] MEDS: SUCRALFATE 1 GM/10 ML ORAL SUSP PO SCH ×2 (06:42→09:16)
[2017-09-20] MEDS: SODIUM CHLORIDE 0.9% 1,000 ML IV SCH (06:43)
[2017-09-20 08:00] VITALS: BP 139/73
[2017-09-20] MEDS: FERROUS SULFATE 325 MG TAB PO SCH ×2 (09:15→12:01)
[2017-09-20] MEDS: PANTOPRAZOLE 40 MG/10 ML VIAL IV SCH (09:16)
[2017-09-20 09:17] VITALS: BP 139/73
[2017-09-20] MEDS: FLUoxetine HCL 20 MG CAP PO SCH (09:17)
[2017-09-20] MEDS ORDERED: TEMAZEPAM 15 MG CAP PO PRN (10:30)
[2017-09-20 11:27] LABS: Basophils # (auto) 0 uL; Eosinophils # (auto) 0.1 uL; Hemoglobin 8.6 g/dL (13.5-17.5); Lymphocytes # (auto) 0.8 uL; Mean Platelet Volume 7.2 fL (6.9-10.8); Monocytes # (auto) 0.7 uL; Neutrophils # (auto) 3.6 uL; White Blood Cell 5.3 10^3/uL (4.4-10.8)
[2017-09-20 11:29] LABS: Basophils % (auto) 0.8 % (0.0-2.0); Eosinophils % (auto) 2.6 % (0.0-7.0); Lymphocytes % (auto) 15.1 % (10.0-50.0); Mean Corpuscular Hemoglobin 24.9 pg (28.0-32.0); Mean Corpuscular Hgb Conc. 31.9 g/dL (32.0-36.0); Mean Corpuscular Volume 78.1 fL (80.0-100.0); Monocytes % (auto) 13.5 % (0.0-12.0); Platelet Count (auto) 374 10^3/uL (140-450); Red Cell Distribution Width 23.8 % (11.8-14.3)
[2017-09-20] MEDS: DOXYCYCLINE 100 MG TAB/CAP PO SCH ×2 (12:01)
[2017-09-20 12:41] VITALS: BP 160/96
[2017-09-20] MEDS: HYDROcodone-ACET 10/325MG TAB PO PRN (13:27)
[2017-09-20 15:06] LABS: Anisocytosis Slight; Hypochromia Slight; Platelet Estimate Adequate
[2017-09-20 15:07] LABS: Microcytosis Slight; Ovalocytes FEW; Stomatocytes Few
== END 2017-09-20 16:15 | disposition short-term general hospital (02) | DRG 253 ==
LOC: EDBD 17:20 → ER 17:20 → CENTRAL 17:21 → EAST 09-13 01:50
PROVIDERS: ADMIT Internal Medicine; ATTEND Internal Medicine
PROC: 30233N1 Transfusion of Nonautologous Red Blood Cells into Peripheral Vein, Percutaneous Approach (ICD-10-PCS; 2017-09-13)
PROC: 0DJ08ZZ Inspection of Upper Intestinal Tract, Via Natural or Artificial Opening Endoscopic (ICD-10-PCS; principal; 2017-09-16 10:51)
PROC: 0DJD8ZZ Inspection of Lower Intestinal Tract, Via Natural or Artificial Opening Endoscopic (ICD-10-PCS; 2017-09-17)
DX: K92.2 Gastrointestinal hemorrhage, unspecified (principal); G93.41 Metabolic encephalopathy; D61.818 Other pancytopenia; Z68.43 Body mass index [BMI] 50.0-59.9, adult; C17.0 Malignant neoplasm of duodenum; E66.01 Morbid (severe) obesity due to excess calories; R16.0 Hepatomegaly, not elsewhere classified; E44.1 Mild protein-calorie malnutrition; G62.9 Polyneuropathy, unspecified; R16.1 Splenomegaly, not elsewhere classified; I10 Essential (primary) hypertension; E86.0 Dehydration; C18.9 Malignant neoplasm of colon, unspecified; D50.9 Iron deficiency anemia, unspecified; F17.200 Nicotine dependence, unspecified, uncomplicated; K43.9 Ventral hernia without obstruction or gangrene; K64.8 Other hemorrhoids; F41.9 Anxiety disorder, unspecified; F32.9 Major depressive disorder, single episode, unspecified; F51.04 Psychophysiologic insomnia; K63.9 Disease of intestine, unspecified; Z98.84 Bariatric surgery status; Z86.14 Personal history of Methicillin resistant Staphylococcus aureus infection
CPT/HCPCS: 36415; 36430; 43235; 45378; 70450; 71010; 71275; 74176; 80048; 80053; 80307; 80320; 81001; 82150; 82270; 82962; 83605; 83690; 83735; 84100; 84484; 85014; 85018; 85025; 85379; 85610; 85730; 86850; 86900; 86901; 86920; 87040; 87077; 87081; 87086; 87186; 87205; 93005; 93970; 94761; 96361; 96372; 96374; C9113; J1885; J2001; J2250; J2405